=== PATIENT | female | born 1930 ===

== ENCOUNTER 2018-03-26 15:36 | Emergency (ER) | payer MEDICARE, OTHER ==
[~2018-03-26] VITALS: Ht 160 cm; Wt 70.8 kg
[2018-03-26] MEDS ORDERED: HYDROCODONE/APAP 10-325 MG TABLET PO ONE (16:45)
[2018-03-26] MEDS ORDERED: HYDROCODONE/APAP 10-325 MG TABLET ONE (16:52)
[2018-03-26 17:11] VITALS: BP 178/76
--- NOTE | 2018-03-26 17:11 | NUR ---
Patient discharged to home in stable conditon. Written and verbal after care instructions given. Patient verbalizes understanding of instructions. PT left ER accompained by son.
== END 2018-03-26 17:12 | disposition home or self-care (01) ==
LOC: ER 15:40
DX: S42.292A Other displaced fracture of upper end of left humerus, initial encounter for closed fracture (principal); I10 Essential (primary) hypertension; E78.5 Hyperlipidemia, unspecified; W18.30XA Fall on same level, unspecified, initial encounter; Y93.89 Activity, other specified; Y92.89 Other specified places as the place of occurrence of the external cause; Y99.8 Other external cause status
CPT/HCPCS: 71045; 73060; 99284; A4663